=== PATIENT | male | born 1995 ===

== ENCOUNTER 2022-06-29 22:00 | Emergency (ER) | payer BC, OTHER ==
[2022-06-29] MEDS ORDERED: Diphtheria,Pertussis(Acell),Tetanus Vaccine 0.5 ML Syringe IM ONE (22:09)
[2022-06-29] MEDS ORDERED: Iopamidol 755 MG/ML 500 ML Multipack Bottle IVPUSH STA (22:42)
[2022-06-29] MEDS ORDERED: HYDROmorphone 1 MG/ML Syringe IVPUSH ONE (23:21)
[2022-06-29 23:28] LABS: CARBON DIOXIDE,CO2 25.8 mmol/L (21.0-32.0); POTASSIUM,K 3.4 mmol/L (3.5-5.1)
[2022-06-29] MEDS ORDERED: Lidocaine 1% 5 ML VIAL INJECT ONE (23:58)
== END 2022-06-30 00:12 | disposition home or self-care (01) ==
LOC: MW.ED 22:07
DX: S02.2XXA Fracture of nasal bones, initial encounter for closed fracture (principal); S02.102A Fracture of base of skull, left side, initial encounter for closed fracture; Z23 Encounter for immunization; V18.0XXA Pedal cycle driver injured in noncollision transport accident in nontraffic accident, initial encounter; Y92.410 Unspecified street and highway as the place of occurrence of the external cause
CPT/HCPCS: 12011; 25605; 36415; 70450; 70486; 71045; 71260; 72125; 73100; 73110; 74177; 80053; 80307; 83690; 85025; 86850; 86900; 86901; 99285; J1170; Q9967; 72128-26; 72131-26